=== PATIENT | male | born 1945 | race Hispanic/Latino ===

== ENCOUNTER 2018-03-05 06:51 | Day surgery (SDC) | payer MEDICARE, BC ==
[2018-03-02 09:02] VITALS: BMI 44.8
[2018-03-05] MEDS ORDERED: Propofol 10 mg/ml Inj (20 ML) ONE (07:57)
[2018-03-05] MEDS ORDERED: Sodium Chloride 0.9% 1,000 ML IV SCH (10:00)
[2018-03-05 10:07] VITALS: RESP 14; TEMP 98
[2018-03-05 11:06] VITALS: BP 140/61; PULSE 54; O2SAT 96
== END 2018-03-05 11:22 | disposition home or self-care (01) ==
LOC: ENDO 06:51
PROVIDERS: ATTEND Internal Medicine Gastroenterology
DX: R19.7 Diarrhea, unspecified (principal); K64.0 First degree hemorrhoids
CPT/HCPCS: 45380; 88305; J2001; J2704; J7030; J7040

== ENCOUNTER → 2018-05-29 | Day surgery (SDC) | payer MEDICARE, BC ==
[2018-05-25 17:03] VITALS: BMI 41.8
[~2018-05-29] MED LIST: Propofol 10 mg/ml Inj (20 ML) ONE; Simethicone 40 mg/0.6 ml Liquid (30 ml) ONE; Sodium Chloride 0.9% 1,000 ML IV SCH
[2018-05-29 17:30] VITALS: TEMP 98
[2018-05-29 17:31] VITALS: RESP 18; O2SAT 99
[2018-05-29 17:32] VITALS: BP 129/58; PULSE 55
== END | disposition home or self-care (01) ==
LOC: ENDO 07:40
PROVIDERS: ATTEND Internal Medicine Gastroenterology
DX: K21.9 Gastro-esophageal reflux disease without esophagitis (principal); K31.7 Polyp of stomach and duodenum; K29.50 Unspecified chronic gastritis without bleeding; K22.10 Ulcer of esophagus without bleeding; K31.9 Disease of stomach and duodenum, unspecified; E11.9 Type 2 diabetes mellitus without complications; I25.10 Atherosclerotic heart disease of native coronary artery without angina pectoris; I10 Essential (primary) hypertension
CPT/HCPCS: 43239; 82948; 88305; 88312; 88342; J2704; J3010; J7030; J7040

== ENCOUNTER 2018-06-01 10:28 | Outpatient (CLI) | payer MEDICARE, BC | END 2018-06-01 10:29 | disposition home or self-care (01) | LOC: RAD 10:28 ==

== ENCOUNTER 2018-07-06 11:47 | Outpatient (CLI) | payer MEDICARE, BC | END 2018-07-06 11:48 | disposition home or self-care (01) | LOC: RAD 11:47 ==